=== PATIENT | male | born 1990 | race Caucasian/White ===

== ENCOUNTER 2024-06-21 22:36 | Observation (INO) ==
--- NOTE | 2024-06-21 23:44 | Emergency Department Note ---
Impression & Plan Abdominal pain, Hernia, umbilical, Nausea & vomiting ED Provider Note CHIEF COMPLAINT: Abdominal pain HISTORY OF PRESENTING ILLNESS: This 33-year-old male patient presents to the emergency department with his for evaluation of abdominal pain. The patient was just discharged from the ER after imaging that revealed a fat- containing umbilical hernia. The patient states that he is still in extreme pain and now having vomiting. The patient was given pain medication for home, but he did not feel comfortable taking it. The patient also had IV Toradol and 2 doses of morphine while in the ER. The patient states that he did not feel comfortable being discharged home and then the patient vomited after he was discharged home. The patient states that he was also seen in the [place] ER today and was discharged home. The patient is requesting admission for emergent surgery or for a repeat CT scan due to his worsening and changing symptoms. The patient's previous ER visit from earlier today was reviewed. The patient's CBC was without leukocytosis, anemia, or thrombocytopenia. BMP revealed a BUN of 24, but no other significant abnormalities. CT scan of the abdomen and pelvis with IV contrast showed a fat-containing umbilical hernia with associated inflammatory fat stranding suggesting ischemia with no herniated bowel. The case was discussed with the on-call general surgeon Dr. Schreiber who stated that because there was no bowel association that this does not require emergent intervention. It was also inquired whether the patient could have the procedure completed tomorrow if he was admitted overnight. However, currently the OR schedule is full and was unable to be performed tomorrow. After discussion with Dr. Schreiber again, Dr. Schreiber stated that he could see the patient in the office on Tuesday (06/25/24). As the patient did not meet criteria for admission at that time, the patient was discharged home with an Oxy IR home pack for treatment of his pain. The patient had not had any nausea or vomiting while he was in the ER previously. REVIEW OF SYSTEMS: See HPI for pertinent positives and pertinent negatives. ALLERGIES: NKDA MEDICATIONS: None PAST MEDICAL HISTORY: Denies pertinent past medical or pertinent past surgical history PHYSICAL EXAM: VITALS: Vitals are noted on the nurse's note and reviewed by myself. GENERAL: The patient appears in pain and nauseous. Non toxic, in no acute distress, non-diaphoretic. SKIN: See abdominal exam. Capillary refill <2 sec. EYES: PERRLA. EOMI. Conjunctivae without injection, sclerae without icterus. NOSE: Patent without discharge. MOUTH: Mucous membranes moist. Uvula midline. Airway patent. NECK: Supple without nuchal rigidity. HEART: Regular rate and rhythm without murmurs gallops or rubs. LUNGS: Clear to auscultation bilaterally without wheezes, rales or rhonchi. No retractions or accessory muscle use. ABDOMEN: Positive bowel sounds x 4. Normal tympanic percussion. Soft, the patient is tender to palpation mostly centrally over the area of the umbilical hernia. There are no color changes of the umbilical hernia. Initially it was unable to reduce the hernia due to the patient's amount of discomfort. No other obvious masses or hepatosplenomegaly. Denis sign negative. No CVA tenderness. No guarding, rigidity, or rebound tenderness. No focal RLQ or LLQ tenderness. MUSCULOSKELETAL: No gross musculoskeletal defects. NEURO: Patient was alert and oriented. No focal neurological deficits. DIFFERENTIAL DIAGNOSIS: Differential diagnosis includes hepatitis, pancreatitis, cholecystitis, cholelithiasis, appendicitis, kidney stone, pyelonephritis, UTI, gastritis, gastroenteritis, mesenteric adenitis, obstruction, constipation, hernia, abdominal abscess, perforation, diverticulitis, IBD, ischemic colitis, abdominal aortic aneurysm, testicular torsion, prostatitis, or others. ED COURSE AND MEDICAL DECISION MAKING: HISTORY FROM INDEPENDENT HISTORIAN: Additional history was obtained from the patient's MEDICATIONS GIVEN: A total of 1 L normal saline solution bolus. Tylenol 1000 mg IV, Zofran 4 mg IV, morphine 4 mg IV, Pepcid 20 mg IV, Phenergan 25 mg IM, and fentanyl 50 mcg IV. MONITOR: Continuous surveillance monitor: Order was placed for continuous surveillance monitor. Patient was placed on the surveillance monitor and continuous pulse ox. Patient was noted to be in normal sinus rhythm at an initial rate of 80 bpm per my interpretation. INTERPRETATION OF LABS: I interpreted the labs with full lab results as below in the lab section of this note. Laboratory results pertinent to the emergent complaint are discussed in the MDM section below. The patient was advised to follow up with their PCP and/or specialist(s) for further outpatient monitoring and management of any abnormal results. INTERPRETATION OF IMAGING: Imaging studies were interpreted by myself and read by radiology as per the imaging section of this note. The patient was advised to follow up with their PCP and/or specialist(s) for further outpatient management of any non-emergent abnormal findings. Chest x-ray negative for acute cardiopulmonary etiology. CT scan of the abdomen pelvis with both oral and IV contrast shows an umbilical hernia with fat stranding and herniated omental fat. Advised clinical correlation and close follow-up for possibility of incarcerated hernia. Diffuse hepatic steatosis. Uncomplicated descending colon diverticulosis. Fat-containing left inguinal hernia. CONSULTATIONS: On-call hospitalist PROCEDURES: The risks and benefits of the procedure were discussed with the patient. Verbal consent was obtained to perform the procedure. The patient was placed in the supine position. The patient was given fentanyl 50 mcg IV for pain control. The umbilical hernia site was inspected and palpated to confirm the location and extent of the hernia. Gentle consistent pressure was applied at the hernia sac with counterpressure at the fascial defect to facilitate reduction. Gradual reduction of the hernia contents into the abdominal cavity was achieved without resistance. There was herniation again, but this was able to be reduced as well. However, the hernia does not stay reduced. However, no signs of incarceration or strangulation on exam after the hernia was finally able to be reduced. There were no complications. MDM SUMMARY: I examined the patient. I reviewed the patient's previous ER record. The patient has had worsening abdominal pain as well as uncontrolled nausea and vomiting. The patient is concerned that his hernia is worse or that something else is going on. The patient is requesting repeat imaging and repeat workup because of his worsening symptoms. An IV lock was placed and labs were drawn. White blood cell count went from 6.93-11.05. Hemoglobin remained normal at 15.8. Platelet count normal. Glucose 109 and ALT 73, but CMP otherwise normal. Lipase normal. Magnesium normal. Urinalysis with 2+ ketones, but no evidence for blood or infection. Chest x-ray negative for acute cardiopulmonary etiology. CT scan of the abdomen and pelvis this time with both oral and IV contrast shows an umbilical hernia with fat stranding and herniated omental fat. Advised clinical correlation and close follow-up for possibility of incarcerated hernia. Diffuse hepatic steatosis. Uncomplicated descending colon diverticulosis. Fat-containing left inguinal hernia. The patient had been given 1 L normal saline solution bolus, IV Tylenol, IV Zofran, IV morphine, IV Pepcid, and IM Phenergan with continued pain, nausea, and vomiting. After the CT scan results were received, I discussed an additional attempt at reducing the hernia. The patient was given fentanyl 50 mcg IV prior to the hernia reduction. I was able to successfully reduce the hernia as above, but it did not stay reduced. However, it does not appear incarcerated or strangulated at this time as I can continue to reduce it each time. I do not feel that surgery needs to be consulted again as the CT scan does not show any new findings. However, the patient states that he is unable to be discharged home due to his continued nausea and vomiting as well as pain. Therefore, the patient will be admitted to medicine for further symptomatic management. The patient was advised that surgery during his inpatient stay would be unlikely unless new surgical concerns developed. I spoke with the on- call hospitalist who agreed to admit the patient for further evaluation and treatment. Please refer to their dictation for further details. The patient was admitted in stable condition. DIAGNOSIS: Abdominal pain Nausea and vomiting Umbilical hernia Past Med/Surg History Problem List (Updated 06/22/24 @ 07:30 by Blanche Sanchez PA-C) Nausea & vomiting (Acute) Abdominal pain (Acute) Hernia, umbilical (Acute) Social History Smoking Status: Never smoker Tobacco Type: Cigarettes Preferred Language: Kinyarw[place] Feels Safe at Home: Yes Allergies Allergies Allergy/AdvReac Type Severity Reaction Status Date / Time No Known Allergies Allergy Verified 06/21/24 19:41 Home Meds Previous Rx's Medication Instructions Recorded oxycodone 5 mg tablet 5 mg PO Q8H PRN pain #20 tabs 06/21/24 Results & Data (ED) Vital Signs Vital Signs - 24 hr 06/21/24 22:38 06/22/24 00:00 06/22/24 00:36 Temperature 37.0 C Temperature Source Oral Pulse Rate 78 Pulse Rate [Finger] 64 Respiratory Rate 18 18 Respiratory Effort / Characteristics Non-Labored Spontaneous Non-Labored Spontaneous Respiratory Depth Normal Normal Respiratory Pattern Regular Regular Blood Pressure 167/109 H Blood Pressure [Left Arm] 148/95 H Blood Pressure Mean 128 Blood Pressure Mean [Left Arm] 112 Pulse Oximetry 97 98 95 Oxygen Delivery Method Room Air Room Air Room Air Sepsis Recent Fever Within 48 Hours No Sepsis New/Unexplained Change in Mental Status N/A Sepsis Action Taken by Nursing No Action Required 06/22/24 02:00 06/22/24 04:00 06/22/24 06:00 Temperature Temperature Source Pulse Rate Pulse Rate [Finger] 63 65 56 L Respiratory Rate 18 17 17 Respiratory Effort / Characteristics Non-Labored Spontaneous Non-Labored Spontaneous Non-Labored Spontaneous Respiratory Depth Normal Normal Normal Respiratory Pattern Regular Regular Regular Blood Pressure Blood Pressure [Left Arm] 144/85 H 129/80 Blood Pressure Mean Blood Pressure Mean [Left Arm] 104 96 Pulse Oximetry 97 93 93 Oxygen Delivery Method Room Air Room Air Room Air Sepsis Recent Fever Within 48 Hours Sepsis New/Unexplained Change in Mental Status Sepsis Action Taken by Nursing Laboratory Data 06/22/24 00:17 06/22/24 00:17 Lab Results 06/22/24 06/22/24 Range/Units 00:17 03:52 WBC 11.05 H (4.8-10.8) K/ul RBC 5.25 (4.70-6.10) M/uL Hgb 15.8 (14.0-18.0) g/dl Hct 44.1 (42.0-52.0) % MCV 84.0 (80.0-100.0) fL MCH 30.1 (25.0-34.0) pg MCHC 35.8 (32.0-36.0) g/dL RDW Std Deviation 35.5 L (36.4-46.3) fL RDW Coeff of Domenic 11.8 (11.5-14.5) % Plt Count 280 (130-400) K/uL MPV 9.0 L (9.4-12.4) fL Immature Gran % (Auto) 0.4 % Neut % (Auto) 79.3 % Lymph % (Auto) 12.5 % [place] % (Auto) 6.6 % Eos % (Auto) 0.6 % Baso % (Auto) 0.6 % Neut # (Auto) 8.76 H (1.40-6.50) K/uL Lymph # (Auto) 1.38 (1.20-3.40) K/uL [place] # (Auto) 0.73 H (0.11-0.59) K/uL Eos # (Auto) 0.07 (0.00-0.50) K/uL Baso # (Auto) 0.07 (0.00-0.20) K/uL Immature Gran # (Auto) 0.04 (0.01-0.20) K/uL Sodium 137 (136-145) mmol/L Potassium 3.6 (3.5-5.1) mmol/L Chloride 105 (98-107) mmol/L Carbon Dioxide 25 (21-32) mmol/L Anion Gap 7 (3-11) BUN 18 (6-23) mg/dl Creatinine 0.91 (0.6-1.4) mg/dl Est Cr Clr Drug Dosing 135.6 ml/min eGFR 114.13 BUN/Creatinine Ratio 19.8 (10-20) Glucose 109 H (70-99(Fasting)) mg/dl Calcium 9.2 (8.6-10.3) mg/dl Magnesium 2.1 (1.7-2.4) mg/dl Total Bilirubin 0.4 (0.2-1.0) mg/dl AST 30 (13-39) U/L ALT 73 H (7-52) U/L Alkaline Phosphatase 53 (34-104) U/L Total Protein 7.5 (6.0-8.3) gm/dl Albumin 4.6 (3.4-5.0) gm/dl Globulin 2.9 (2.5-4.0) gm/dl Albumin/Globulin Ratio 1.6 (0.9-2) Lipase 52 (11-82) U/L Urine Color Yellow Urine Appearance Clear (Clear) Urine pH 6.0 (4.5-7.5) Ur Specific [place] > 1.045 H (1.000-1.030) Urine Protein Negative (Negative) Urine Glucose (UA) Negative (Negative) Urine Ketones 2+ H (Negative) Urine Blood Negative (Negative) Urine Nitrite Negative (Negative) Urine Bilirubin Negative (Negative) Urine Urobilinogen Negative (Negative) Ur Leukocyte Esterase Negative (Negative) Administered Medications Discontinued Medications Fentanyl Citrate (Fentanyl Citrate Pf 100 Mcg/2 Ml Vial) 50 mcg IV NOW STA Stop: 06/22/24 03:58 Last Admin: 06/22/24 04:10 Dose: 50 mcg Documented By: RICARDO Acetaminophen (Ofirmev) 1,000 mg in 100 mls @ 400 mls/hr IV NOW STA Stop: 06/22/24 00:10 Last Infusion: 06/22/24 00:39 Dose: Infused Documented By: Admin: 06/22/24 00:16 Dose: 400 mls/hr Documented By: RICARDO Sodium Chloride (Nss) 500 mls @ 999 mls/hr IV .Q31M ONE Stop: 06/22/24 00:26 Last Infusion: 06/22/24 00:48 Dose: Infused Documented By: Admin: 06/22/24 00:16 Dose: 999 mls/hr Documented By: RICARDO Famotidine (Pepcid 20mg Iv Push) 20 mg in 5 mls @ 2.5 mls/min IV NOW STA Stop: 06/22/24 01:44 Last Admin: 06/22/24 01:55 Dose: 2.5 mls/min Documented By: RICARDO Sodium Chloride (Nss) 500 mls @ 999 mls/hr IV .Q31M ONE Stop: 06/22/24 04:43 Last Infusion: 06/22/24 04:58 Dose: Infused Documented By: Admin: 06/22/24 04:26 Dose: 999 mls/hr Documented By: RICARDO Ioversol (Optiray 320 100ml) 100 ml IV ONCE ONE Stop: 06/22/24 02:30 Last Admin: 06/22/24 02:30 Dose: 93 ml Documented By: KHAI Morphine Sulfate (Morphine Sulfate 4 Mg/Ml 1 Ml Carp\Vial) 4 mg IV NOW STA Stop: 06/22/24 01:21 Last Admin: 06/22/24 01:38 Dose: 4 mg Documented By: RICARDO Ondansetron HCl (Ondansetron Inj 2 Mg/Ml 2 Ml Vial) 4 mg IV NOW STA Stop: 06/21/24 23:57 Last Admin: 06/22/24 00:16 Dose: 4 mg Documented By: RICARDO Promethazine HCl (Promethazine Hcl Inj 25 Mg/Ml 1 Ml Vial) 25 mg IM NOW STA Stop: 06/22/24 01:44 Last Admin: 06/22/24 01:54 Dose: 25 mg Documented By: RICARDO Imaging Data Radiologist's Impression: Abdomen/Pelvis CT 06/21/24 23:57 EXAM: CT abd pelvis oral and IV con CLINICAL HISTORY: Worsening abd pain, vomiting, h/o ischemic hernia TECHNIQUE: Multiple contiguous axial images were obtained from the level of diaphragm to the pubis symphysis. This study was acquired after the IV administration of iodinated contrast material, given the patient's indications for the examination. If IV contrast material had not been administered, the likelihood of detecting abnormalities relevant to the patient's condition would have been substantially decreased. Coronal and sagittal reformatted images were generated and reviewed to improve anatomic localization and optimize lesion detection. CT scan was performed according to ALARA (as low as reasonably achievable). COMPARISON: none FINDINGS: The visualized lung bases shows subpleural ground glassing in bilateral lower lobes. ABDOMEN/PELVIS: The liver is normal in size and shows diffuse hypoenhancement. No focal liver lesions are seen. There is no intra or extrahepatic biliary ductal dilatation. Hepatic vasculature is patent. The gallbladder is unremarkable. The spleen, pancreas, and adrenal glands are unremarkable. The kidneys are normal in size and attenuation. There is no hydronephrosis or perinephric fat stranding. No renal calculi or renal masses are identified. The ureters are normal in caliber and no ureteral calculi are seen. The bladder is normal in contour. No evidence of focal or diffuse bowel wall thickening or evidence of bowel obstruction is seen. Few small diverticuli of 2mm seen in descending colon. No inflammatory changes. The appendix is visualized in the right lower quadrant and appears within normal limits. No adenopathy or fluid collections are seen. The aorta is normal in caliber. No aggressive appearing osseous lesions are identified. Fat containing umbilical hernia is seen, the defect measuring [id number]. There is fat stranding seen in herniated omental fat. Fat containing left inguinal hernia. IMPRESSION: 1. Umbilical hernia with fat stranding in herniated omental fat. Advised clinical correlation and close follow up for possibility of incarcerated hernia. 2. Diffuse hepatic steatosis. 3. Uncomplicated descending colon diverticulosis. 4. Fat containing left inguinal hernia. Electronically signed by Jitendra Vega 06-22-2024 03:17 AM Chest X-Ray 06/21/24 23:57 EXAM: XR chest 1V portable CLINICAL HISTORY: Abdominal pain. TECHNIQUE: An X-ray image of the chest is obtained in AP projection. COMPARISON: No prior studies are available for comparison. FINDINGS: Pulmonary Parenchyma: Lungs are clear bilaterally. No evidence of consolidation, collapse, or focal opacities. No pulmonary nodules are identified. No evidence of pleural effusion or pleural thickening. Heart and Mediastinum: Heart size and shape are normal. No mediastinal widening or masses. No hilar or mediastinal lymphadenopathy. Bony Thorax: Bony thorax appears intact without fractures or deformities. Soft Tissues: Soft tissues overlying the chest wall are unremarkable. IMPRESSION: Normal chest X-ray. No acute cardiopulmonary abnormalities are identified. Electronically signed by Mati Henderson 06-22-2024 01:38 AM Discharge Plan Visit Data Chief Complaint: Pain (Generalized) Stated Complaint: PAIN ED Provider: Vernell Cid ED Midlevel Provider: Blanche Sanchez Discharge Problem: Abdominal pain, Hernia, umbilical, Nausea & vomiting Patient Disposition: Admitted As Inpatient Condition: Good Forms Stand Alone Forms: [place] Prescriptions Prescriptions: No Action oxycodone 5 mg tablet 5 mg PO Q8H PRN (Reason: pain) Qty: 20 0RF Referrals Referrals: PCP,NO [Physician] - Discharge Problem: Abdominal pain Qualifiers: Abdominal location: generalized Qualified Code(s): R10.84 - Generalized abdominal pain Hernia, umbilical Qualifiers: Obstruction and gangrene presence: without obstruction or gangrene Qualified Code(s): K42.9 - Umbilical hernia without obstruction or gangrene Nausea & vomiting Qualifiers: Vomiting type: unspecified Qualified Code(s): R11.2 - Nausea with vomiting, unspecified
[2024-06-22] MEDS: ONDANSETRON INJ 2 MG/ML 2 ML VIAL IV STA (00:16)
[2024-06-22] MEDS: SODIUM CHLORIDE 0.9% 500 ML IV ONE ×2 (00:16→04:26)
[2024-06-22] MEDS: ACETAMINOPHEN 1,000 MG/100 ML VIAL IV STA (00:16)
[2024-06-22 00:36] LABS: Basophils # (auto) 0.07 K/uL (0.00-0.20); Basophils % (auto) 0.6 %; Eosinophils # (auto) 0.07 K/uL (0.00-0.50); Eosinophils % (auto) 0.6 %; Hematocrit (blood only) 44.1 % (42.0-52.0); Hemoglobin 15.8 g/dl (14.0-18.0); Immature Granulocytes # (auto) 0.04 K/uL (0.01-0.20); Immature Granulocytes % (auto) 0.4 %; Lymphocytes # (auto) 1.38 K/uL (1.20-3.40); Lymphocytes % (auto) 12.5 %; Mean Corpuscular Hemoglobin 30.1 pg (25.0-34.0); Mean Corpuscular Hgb Conc 35.8 g/dL (32.0-36.0); Monocytes # (auto) 0.73 K/uL (0.11-0.59); Monocytes % (auto) 6.6 %; Neutrophils # (auto) 8.76 K/uL (1.40-6.50); Neutrophils % (auto) 79.3 %; Platelet Count 280 K/uL (130-400); RDW Coefficient of Variation 11.8 % (11.5-14.5); RDW Standard Deviation 35.5 fL (36.4-46.3); Red Blood Count 5.25 M/uL (4.70-6.10); White Blood Count 11.05 K/ul (4.8-10.8)
[2024-06-22 00:53] LABS: Albumin Globulin Ratio 1.6 (0.9-2); Albumin Level 4.6 gm/dl (3.4-5.0); BUN Creatinine Ratio 19.8 (10-20); Bilirubin,Total 0.4 mg/dl (0.2-1.0); Calcium 9.2 mg/dl (8.6-10.3); Creatinine Clr Calc Pharmacy 135.6 ml/min; Globulin 2.9 gm/dl (2.5-4.0); Magnesium 2.1 mg/dl (1.7-2.4); Potassium 3.6 mmol/L (3.5-5.1); Total Protein 7.5 gm/dl (6.0-8.3)
[2024-06-22] MEDS: MoRPHine SULFATE 4 MG/ML 1 ML CARP\\VIAL IV STA (01:38)
--- NOTE | 2024-06-22 01:40 | XRay Report ---
EXAM: XR chest 1V portable CLINICAL HISTORY: Abdominal pain. TECHNIQUE: An X-ray image of the chest is obtained in AP projection. COMPARISON: No prior studies are available for comparison. FINDINGS: Pulmonary Parenchyma: Lungs are clear bilaterally. No evidence of consolidation, collapse, or focal opacities. No pulmonary nodules are identified. No evidence of pleural effusion or pleural thickening. Heart and Mediastinum: Heart size and shape are normal. No mediastinal widening or masses. No hilar or mediastinal lymphadenopathy. Bony Thorax: Bony thorax appears intact without fractures or deformities. Soft Tissues: Soft tissues overlying the chest wall are unremarkable. IMPRESSION: Normal chest X-ray. No acute cardiopulmonary abnormalities are identified. Electronically signed by Mati Henderson 06-22-2024 01:38 AM
[2024-06-22] MEDS: PROMETHAZINE HCL INJ 25 MG/ML 1 ML VIAL IM STA (01:54)
[2024-06-22] MEDS: FAMOTIDINE 20MG IV PUSH 20 MG/5 ML SYR IV STA (01:55)
[2024-06-22] MEDS: OPTIRAY 320 100ml IV ONE (02:30)
--- NOTE | 2024-06-22 03:18 | CT Scan Report ---
EXAM: CT abd pelvis oral and IV con CLINICAL HISTORY: Worsening abd pain, vomiting, h/o ischemic hernia TECHNIQUE: Multiple contiguous axial images were obtained from the level of diaphragm to the pubis symphysis. This study was acquired after the IV administration of iodinated contrast material, given the patient's indications for the examination. If IV contrast material had not been administered, the likelihood of detecting abnormalities relevant to the patient's condition would have been substantially decreased. Coronal and sagittal reformatted images were generated and reviewed to improve anatomic localization and optimize lesion detection. CT scan was performed according to ALARA (as low as reasonably achievable). COMPARISON: none FINDINGS: The visualized lung bases shows subpleural ground glassing in bilateral lower lobes. ABDOMEN/PELVIS: The liver is normal in size and shows diffuse hypoenhancement. No focal liver lesions are seen. There is no intra or extrahepatic biliary ductal dilatation. Hepatic vasculature is patent. The gallbladder is unremarkable. The spleen, pancreas, and adrenal glands are unremarkable. The kidneys are normal in size and attenuation. There is no hydronephrosis or perinephric fat stranding. No renal calculi or renal masses are identified. The ureters are normal in caliber and no ureteral calculi are seen. The bladder is normal in contour. No evidence of focal or diffuse bowel wall thickening or evidence of bowel obstruction is seen. Few small diverticuli of 2mm seen in descending colon. No inflammatory changes. The appendix is visualized in the right lower quadrant and appears within normal limits. No adenopathy or fluid collections are seen. The aorta is normal in caliber. No aggressive appearing osseous lesions are identified. Fat containing umbilical hernia is seen, the defect measuring [id number]. There is fat stranding seen in herniated omental fat. Fat containing left inguinal hernia. IMPRESSION: 1. Umbilical hernia with fat stranding in herniated omental fat. Advised clinical correlation and close follow up for possibility of incarcerated hernia. 2. Diffuse hepatic steatosis. 3. Uncomplicated descending colon diverticulosis. 4. Fat containing left inguinal hernia. Electronically signed by Jitendra Vega 06-22-2024 03:17 AM
[2024-06-22] MEDS: fentaNYL citrate PF 100 MCG/2 ML VIAL IV STA (04:10)
[2024-06-22 04:11] LABS: Appearance Urine Clear (Clear); Bilirubin Urine Negative (Negative); Blood Urine Negative (Negative); Color Urine Yellow; Glucose Urine UA Negative (Negative); Ketones Urine 2+ (Negative); Leukocyte Esterase Urine Negative (Negative); Nitrite Urine Negative (Negative); Protein Urine Negative (Negative); Specific Gravity Urine > 1.045 (1.000-1.030); Urobilinogen Urine Negative (Negative)
--- NOTE | 2024-06-22 04:37 | History & Physical Report ---
Date of Service June 22, 2024 Assessment & Plan (1) Abdominal pain: Plan: Abdominal pain Possible incarcerated umbilical hernia Hepatic steatosis on imaging likely NAFLD Morbid obesity OBS Admit to MedSurg Analgesia General Surgery consult Re: Abdominal pain, possible incarcerated umbilical hernia N.p.o. until seen by general surgery in anticipation of procedure Outpatient GI follow-up for likely NAFLD DVT prophylaxis. SCDs re: possible procedure Full code Text document was generated using [employer] voice recognition software. It may contain grammatical or spelling errors. Kindly contact undersigned for clarification of any documentation item in question. History of Present Illness Chief Complaint: Abdominal pain Primary Care Provider: GERRI MCMANUS (Patient has not met her.) History obtained from patient, family, and records. No significant medical history. Patient moved to [place], [place] from [place] last November,. Has not been to see assigned PCP. Patient has had a hernia close to his bellybutton for about a year now. Worsening pain noted since last week. Patient unable to push bulge in. No fever, no chills. No chest pain, no SOB. Hard to move bowels because of pain from bearing down. Denies black/bloody stools. [facility]. He was told to see General Surgery outpatient. Unanswered calls to [place] surgeon office as per patient/family. Patient consulted ER yesterday afternoon due to worsening symptoms. CT abdomen pelvis showed Prominent fat-containing umbilical hernia, associated with inflammatory fat stranding, suggesting ischemia. No herniated bowel. Outpatient appointment recommended by general surgeon as per discussion with ED provider. Patient uncomfortable upon discharge at the ER. Had pick him up from the hospital. Patient had episode of emesis in the vehicle. Patient returned to ER for further evaluation. 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 Allergies Allergy/AdvReac Type Severity Reaction Status Date / Time No Known Allergies Allergy Verified 06/21/24 19:41 Home Medications Medication Instructions Recorded Confirmed Type oxycodone 5 mg tablet 5 mg PO Q8H PRN pain #20 tabs 06/21/24 06/22/24 Rx Past Med/Surg History Problem List (Updated 06/21/24 @ 20:54 by Eliseo Sanchez MD) Abdominal pain (Acute) Hernia, umbilical (Acute) Social History Smoking Status: Never smoker Tobacco Type: Cigarettes Preferred Language: Serbian Feels Safe at Home: Yes Review of Systems Review of Systems: As per HPI, all other systems reviewed and negative Physical Exam Physical Exam: GENERAL: Comfortable, morbidly obese, slightly anxious, no respiratory distress SKIN: Normal color, warm HEENT: Pease palpebral conjunctivae, no ptosis, dry buccal mucosa NECK : Supple, no tenderness CHEST : CTA, no tenderness HEART : RRR, no obvious murmurs ABDOMEN: Some distention, tender bulge over periumbilical hernia EXTREMITIES : Minimal LE swelling without tenderness, palpable pulses, no other conspicuous deformities noted NEUROLOGIC : Coherent, no facial asymmetry, no other gross focality Results & Data Results & Data Vital Signs (Past 12 Hours) Vital Signs Temp Pulse Pulse Resp BP BP Pulse Ox 06/22/24 04:00 65 17 129/80 93 06/22/24 02:00 63 18 144/85 H 97 06/22/24 00:36 64 18 148/95 H 95 06/22/24 00:00 98 06/21/24 22:38 37.0 C 78 18 167/109 H 97 O2 Del Method 06/22/24 04:00 Room Air 06/22/24 02:00 Room Air 06/22/24 00:36 Room Air 06/22/24 00:00 Room Air 06/21/24 22:38 Room Air Laboratory Results Laboratory Results WBC 11.05 K/ul (4.8-10.8) H 06/22/24 00:17 RBC 5.25 M/uL (4.70-6.10) 06/22/24 00:17 Hgb 15.8 g/dl (14.0-18.0) 06/22/24 00:17 Hct 44.1 % (42.0-52.0) 06/22/24 00:17 MCV 84.0 fL (80.0-100.0) 06/22/24 00:17 MCH 30.1 pg (25.0-34.0) 06/22/24 00:17 MCHC 35.8 g/dL (32.0-36.0) 06/22/24 00:17 RDW Std Deviation 35.5 fL (36.4-46.3) L 06/22/24 00:17 RDW Coeff of Domenic 11.8 % (11.5-14.5) 06/22/24 00:17 Plt Count 280 K/uL (130-400) 06/22/24 00:17 MPV 9.0 fL (9.4-12.4) L 06/22/24 00:17 Immature Gran % (Auto) 0.4 % 06/22/24 00:17 Neut % (Auto) 79.3 % 06/22/24 00:17 Lymph % (Auto) 12.5 % 06/22/24 00:17 [place] % (Auto) 6.6 % 06/22/24 00:17 Eos % (Auto) 0.6 % 06/22/24 00:17 Baso % (Auto) 0.6 % 06/22/24 00:17 Neut # (Auto) 8.76 K/uL (1.40-6.50) H 06/22/24 00:17 Lymph # (Auto) 1.38 K/uL (1.20-3.40) 06/22/24 00:17 [place] # (Auto) 0.73 K/uL (0.11-0.59) H 06/22/24 00:17 Eos # (Auto) 0.07 K/uL (0.00-0.50) 06/22/24 00:17 Baso # (Auto) 0.07 K/uL (0.00-0.20) 06/22/24 00:17 Immature Gran # (Auto) 0.04 K/uL (0.01-0.20) 06/22/24 00:17 Sodium 137 mmol/L (136-145) 06/22/24 00:17 Potassium 3.6 mmol/L (3.5-5.1) 06/22/24 00:17 Chloride 105 mmol/L (98-107) 06/22/24 00:17 Carbon Dioxide 25 mmol/L (21-32) 06/22/24 00:17 Anion Gap 7 (3-11) 06/22/24 00:17 BUN 18 mg/dl (6-23) 06/22/24 00:17 Creatinine 0.91 mg/dl (0.6-1.4) 06/22/24 00:17 Est Cr Clr Drug Dosing 135.6 ml/min 06/22/24 00:17 eGFR 114.13 06/22/24 00:17 BUN/Creatinine Ratio 19.8 (10-20) 06/22/24 00:17 Glucose 109 mg/dl (70-99(Fasting)) H 06/22/24 00:17 Calcium 9.2 mg/dl (8.6-10.3) 06/22/24 00:17 Magnesium 2.1 mg/dl (1.7-2.4) 06/22/24 00:17 Total Bilirubin 0.4 mg/dl (0.2-1.0) 06/22/24 00:17 AST 30 U/L (13-39) 06/22/24 00:17 ALT 73 U/L (7-52) H 06/22/24 00:17 Alkaline Phosphatase 53 U/L (34-104) 06/22/24 00:17 Total Protein 7.5 gm/dl (6.0-8.3) 06/22/24 00:17 Albumin 4.6 gm/dl (3.4-5.0) 06/22/24 00:17 Globulin 2.9 gm/dl (2.5-4.0) 06/22/24 00:17 Albumin/Globulin Ratio 1.6 (0.9-2) 06/22/24 00:17 Lipase 52 U/L (11-82) 06/22/24 00:17 Urine Color Yellow 06/22/24 03:52 Urine Appearance Clear (Clear) 06/22/24 03:52 Urine pH 6.0 (4.5-7.5) 06/22/24 03:52 Ur Specific [place] > 1.045 (1.000-1.030) H 06/22/24 03:52 Urine Protein Negative (Negative) 06/22/24 03:52 Urine Glucose (UA) Negative (Negative) 06/22/24 03:52 Urine Ketones 2+ (Negative) H 06/22/24 03:52 Urine Blood Negative (Negative) 06/22/24 03:52 Urine Nitrite Negative (Negative) 06/22/24 03:52 Urine Bilirubin Negative (Negative) 06/22/24 03:52 Urine Urobilinogen Negative (Negative) 06/22/24 03:52 Ur Leukocyte Esterase Negative (Negative) 06/22/24 03:52 Impressions Abdomen/Pelvis CT 06/21/24 23:57 EXAM: CT abd pelvis oral and IV con CLINICAL HISTORY: Worsening abd pain, vomiting, h/o ischemic hernia TECHNIQUE: Multiple contiguous axial images were obtained from the level of diaphragm to the pubis symphysis. This study was acquired after the IV administration of iodinated contrast material, given the patient's indications for the examination. If IV contrast material had not been administered, the likelihood of detecting abnormalities relevant to the patient's condition would have been substantially decreased. Coronal and sagittal reformatted images were generated and reviewed to improve anatomic localization and optimize lesion detection. CT scan was performed according to ALARA (as low as reasonably achievable). COMPARISON: none FINDINGS: The visualized lung bases shows subpleural ground glassing in bilateral lower lobes. ABDOMEN/PELVIS: The liver is normal in size and shows diffuse hypoenhancement. No focal liver lesions are seen. There is no intra or extrahepatic biliary ductal dilatation. Hepatic vasculature is patent. The gallbladder is unremarkable. The spleen, pancreas, and adrenal glands are unremarkable. The kidneys are normal in size and attenuation. There is no hydronephrosis or perinephric fat stranding. No renal calculi or renal masses are identified. The ureters are normal in caliber and no ureteral calculi are seen. The bladder is normal in contour. No evidence of focal or diffuse bowel wall thickening or evidence of bowel obstruction is seen. Few small diverticuli of 2mm seen in descending colon. No inflammatory changes. The appendix is visualized in the right lower quadrant and appears within normal limits. No adenopathy or fluid collections are seen. The aorta is normal in caliber. No aggressive appearing osseous lesions are identified. Fat containing umbilical hernia is seen, the defect measuring [id number]. There is fat stranding seen in herniated omental fat. Fat containing left inguinal hernia. IMPRESSION: 1. Umbilical hernia with fat stranding in herniated omental fat. Advised clinical correlation and close follow up for possibility of incarcerated hernia. 2. Diffuse hepatic steatosis. 3. Uncomplicated descending colon diverticulosis. 4. Fat containing left inguinal hernia. Electronically signed by Jitendra Vega 06-22-2024 03:17 AM Chest X-Ray 06/21/24 23:57 EXAM: XR chest 1V portable CLINICAL HISTORY: Abdominal pain. TECHNIQUE: An X-ray image of the chest is obtained in AP projection. COMPARISON: No prior studies are available for comparison. FINDINGS: Pulmonary Parenchyma: Lungs are clear bilaterally. No evidence of consolidation, collapse, or focal opacities. No pulmonary nodules are identified. No evidence of pleural effusion or pleural thickening. Heart and Mediastinum: Heart size and shape are normal. No mediastinal widening or masses. No hilar or mediastinal lymphadenopathy. Bony Thorax: Bony thorax appears intact without fractures or deformities. Soft Tissues: Soft tissues overlying the chest wall are unremarkable. IMPRESSION: Normal chest X-ray. No acute cardiopulmonary abnormalities are identified. Electronically signed by Mati Henderson 06-22-2024 01:38 AM (1) Abdominal pain Abdominal location: periumbilical Qualified Code(s): R10.33 - Periumbilical pain
[2024-06-22] MEDS ORDERED: oxyCODONE HCL IR 5 MG TAB (IMMEDIATE RELEASE) PO PRN (04:38)
[2024-06-22] MEDS ORDERED: LORazepam 0.5 MG TAB PO PRN (04:38)
[2024-06-22] MEDS ORDERED: PROMETHAZINE 12.5 MG/50.5 ML BAG IV PRN (04:38)
[2024-06-22] MEDS ORDERED: ACETAMINOPHEN 500 MG TAB PO PRN (04:38)
--- NOTE | 2024-06-22 07:48 | Hospitalist Progress Note ---
Date of Service June 22, 2024 Assessment & Plan (1) Abdominal pain: Plan: 33 year old male with no known medical history presents with abdominal pain, umbilical hernia and emesis. CTAP suggestive of incarcerated hernia; mild leukocytosis. Abdominal pain Possible incarcerated umbilical hernia: acute Seen at [facility] ED last week and was unable to secure a follow up appointment. His abdominal pain started about 10 days ago. Umbilical hernia was reduced upon his arrival to the ED and popped back out. Has used abd binder without relief. Reports emesis x2 over the past 48 hours without hematemesis. CTAP suggestive of incarcerated hernia and uncomplicated descending colon diverticulosis. Fat-containing left inguinal hernia. no herniation identified. General Surgery consult placed; RCRI score zero. No leukocytosis mild leukocytosis; 11.05; some chills Morphine and ketorolac for pain control. Does not want to take oxycodone. ECG ordered and will keep NPO; IVF ordered @ 100mL/hour x1 bag; reassess Gen sx planning to take to OR for incarcerated umbilical repair as an add on today 06/22. Hepatic steatosis: identified on CTAP; likely NAFLD ALT 73 recommend outpatient GI follow-up Trend CMP in a.m. Morbid obesity: BMI 42 May have underlying heart disease; no established PCP here; would benefit from lipid panel, HA1c, TSH; will add on here. Disposition: PCP: Recently moved from the [facility] 12/2023; will require outpatient PCP to be established prior to discharge. DVT prophylaxis. SCDs re: possible procedure CODE STATUS:Full code I spent a total of 62 minutes coordinating, documenting, and providing care for this patient excluding time spent inthe performance of separately billed services or time spent by another provider/QHP. Supervising Physician Co-Signing Physician Notes Patient is seen and examined at bedside. States having abdominal pain p eriumbilical associate with nausea, vomiting today. Denies any chest pain, dyspnea, dizziness. Discussed with patient's family at bedside. On exam patient is morbidly obese, no apparent distress, normocephalic atraumatic, EOMI, normal breath sounds, clear to auscultation, S1-S2, no murmur, no peripheral edema, abdomen soft, protuberant, generalized tenderness, voluntary guarding, umbilical hernia present, no rigidity, normal bowel sounds, alert, awake, oriented, grossly no focal deficits. Patient is currently being managed for suspected incarcerated umbilical hernia. IV fluids, n.p.o., pain control for now. Appreciate surgery input. Plan for open umbilical hernia repair today. I personally interviewed and examined the patient at bedside. I have reviewed the advanced practitioner's documentation on the date of service referred in note and agree with plan. Patient's care is coordinated with Abimbola NOBLES . Please refer to the documentation above for details of patient's presentation and for discussion of other issues. I spent a total [id number] coordinating, documenting, and providing care for this patient excluding time spent in the performance of separately billed services or time spent by another provider/QHP. Subjective Pt lying in his hospital bed in apparent distress, with furrowed brow. His eyes were closed and he was resting - easily awakened by verbal stimuli. States that his abdominal symptoms have been going on for almost two weeks. He was seen at [facility] ED last week and was unable to secure a follow up appointment. His abdominal pain started about 10 days ago. His umbilical hernia was reduced upon his arrival to the ED. Reports two episodes of emesis over the past 48 hours. Reports chills without fever intermittently. Review of Systems Review of Systems: Neuro: (-) Falls, trauma, slurred speech (+) chills HEENT: (-) MAG[place], dizziness, dysphagia, visual or auditory changes CV: (-) CP, palpitations, swelling Resp: (-) SOB GI: (-) appetite changes, N/V/D, bowel changes (+) abdominal pain and tenderness around umbilicus : (-) urinary changes Skin: (-) rashes Psych: (-) anxiety, depression Physical Exam Physical Exam: Neuro: AAOx4, PERRLA, no aphagia, memory changes, CNII-XII grossly intact HEENT: head normocephalic, moist mucus membranes CV: S1/S2, (-) M/G/R, (-) edema, cap refill < 3 seconds Resp: Lungs CTA in all owen. On RA GI: Abdomen large, Soft and tender in all four quadrants, Ax4 bowel sounds, (-) CVA tenderness Musculoskeletal: 5/5 B/L UE strength, 5/5 B/L LE strength. No gait disturbance Skin: (-) rashes , (-) erythema. Psych: euthymic mood Results & Data Results & Data Vital Signs (Past 12 Hours) Vital Signs Temp Pulse Pulse Resp BP BP Pulse Ox 06/22/24 06:00 56 L 17 93 06/22/24 04:00 65 17 129/80 93 06/22/24 02:00 63 18 144/85 H 97 06/22/24 00:36 64 18 148/95 H 95 06/22/24 00:00 98 06/21/24 22:38 37.0 C 78 18 167/109 H 97 O2 Del Method 06/22/24 06:00 Room Air 06/22/24 04:00 Room Air 06/22/24 02:00 Room Air 06/22/24 00:36 Room Air 06/22/24 00:00 Room Air 06/21/24 22:38 Room Air Laboratory Results Short CBC 06/22/24 Range/Units 00:17 WBC 11.05 H (4.8-10.8) K/ul Hgb 15.8 (14.0-18.0) g/dl Hct 44.1 (42.0-52.0) % Plt Count 280 (130-400) K/uL BMP 06/22/24 00:17 Sodium 137 Potassium 3.6 Chloride 105 Carbon Dioxide 25 BUN 18 Creatinine 0.91 Glucose 109 H Calcium 9.2 Liver Function 06/22/24 Range/Units 00:17 Total Bilirubin 0.4 (0.2-1.0) mg/dl AST 30 (13-39) U/L ALT 73 H (7-52) U/L Alkaline Phosphatase 53 (34-104) U/L Albumin 4.6 (3.4-5.0) gm/dl Urine 06/22/24 Range/Units 03:52 Urine Color Yellow Urine Appearance Clear (Clear) Urine pH 6.0 (4.5-7.5) Ur Specific [place] > 1.045 H (1.000-1.030) Urine Protein Negative (Negative) Urine Glucose (UA) Negative (Negative) Diagnostic Findings Abdomen/Pelvis CT 06/21/24 23:57 EXAM: CT abd pelvis oral and IV con CLINICAL HISTORY: Worsening abd pain, vomiting, h/o ischemic hernia TECHNIQUE: Multiple contiguous axial images were obtained from the level of diaphragm to the pubis symphysis. This study was acquired after the IV administration of iodinated contrast material, given the patient's indications for the examination. If IV contrast material had not been administered, the likelihood of detecting abnormalities relevant to the patient's condition would have been substantially decreased. Coronal and sagittal reformatted images were generated and reviewed to improve anatomic localization and optimize lesion detection. CT scan was performed according to ALARA (as low as reasonably achievable). COMPARISON: none FINDINGS: The visualized lung bases shows subpleural ground glassing in bilateral lower lobes. ABDOMEN/PELVIS: The liver is normal in size and shows diffuse hypoenhancement. No focal liver lesions are seen. There is no intra or extrahepatic biliary ductal dilatation. Hepatic vasculature is patent. The gallbladder is unremarkable. The spleen, pancreas, and adrenal glands are unremarkable. The kidneys are normal in size and attenuation. There is no hydronephrosis or perinephric fat stranding. No renal calculi or renal masses are identified. The ureters are normal in caliber and no ureteral calculi are seen. The bladder is normal in contour. No evidence of focal or diffuse bowel wall thickening or evidence of bowel obstruction is seen. Few small diverticuli of 2mm seen in descending colon. No inflammatory changes. The appendix is visualized in the right lower quadrant and appears within normal limits. No adenopathy or fluid collections are seen. The aorta is normal in caliber. No aggressive appearing osseous lesions are identified. Fat containing umbilical hernia is seen, the defect measuring [id number]. There is fat stranding seen in herniated omental fat. Fat containing left inguinal hernia. IMPRESSION: 1. Umbilical hernia with fat stranding in herniated omental fat. Advised clinical correlation and close follow up for possibility of incarcerated hernia. 2. Diffuse hepatic steatosis. 3. Uncomplicated descending colon diverticulosis. 4. Fat containing left inguinal hernia. Electronically signed by Jitendra Vega 06-22-2024 03:17 AM Chest X-Ray 06/21/24 23:57 EXAM: XR chest 1V portable CLINICAL HISTORY: Abdominal pain. TECHNIQUE: An X-ray image of the chest is obtained in AP projection. COMPARISON: No prior studies are available for comparison. FINDINGS: Pulmonary Parenchyma: Lungs are clear bilaterally. No evidence of consolidation, collapse, or focal opacities. No pulmonary nodules are identified. No evidence of pleural effusion or pleural thickening. Heart and Mediastinum: Heart size and shape are normal. No mediastinal widening or masses. No hilar or mediastinal lymphadenopathy. Bony Thorax: Bony thorax appears intact without fractures or deformities. Soft Tissues: Soft tissues overlying the chest wall are unremarkable. IMPRESSION: Normal chest X-ray. No acute cardiopulmonary abnormalities are identified. Electronically signed by Mati Henderson 06-22-2024 01:38 AM (1) Abdominal pain Abdominal location: generalized Qualified Code(s): R10.84 - Generalized abdominal pain
[2024-06-22] MEDS: KETOROLAC TROMETHAMINE 15 MG/ML VIAL IV PRN (08:54)
[2024-06-22] MEDS ORDERED: ENOXAPARIN INJ 40 MG/0.4 ML SYR SQ SCH (09:00)
[2024-06-22] MEDS: MoRPHine SULFATE 2 MG/ML CARP IV PRN (10:33)
[2024-06-22] MEDS: SODIUM CHLORIDE 0.9% 1,000 ML IV ONE (10:34)
--- NOTE | 2024-06-22 11:04 | Surgery Consultation ---
Date of Consultation June 22, 2024 Assessment & Plan (1) Hernia, umbilical: This is a 33yM with no significant PMH who presented to the [facility] ED on 06/21/24 with complaints of abdominal pain secondary to an umbilical hernia. Present at least over the last year but worsening symptoms and inability to self reduce it has worsened over the last week. He was unable to get into a surgeon as an out patient at [facility] and now has been in our ER twice over the last 24 hrs with worsening symptoms. He has had two CT a/p's that showed an umbilical hernia with fat stranding in herniated omental fat. Advised clinical correlation and close follow up for possibility of incarcerated hernia. It was apparently able to be reduced by the ER provider, but patient reports it then popped back out immediately causing him significant discomfort. Since 2nd ER evaluation he has since been admitted by the medicine service for pain/symptom control with the possibility of surgical intervention this admission. Today labs show wbc 11, hbg 15, cr 0.9. Vital signs are stable. On exam patient is resting in bed. Visually he has what appears to be a protruding umbilical hernia. On exam this area is tender to palpation. The patient was unable to tolerate me palpating it to attempt bedside reduction without writhing in bed despite recent pain medication. Options discussed with patient as far as consideration of elective surgical intervention in short order as there is no bowel in the hernia vs. surgery this admission. Given patient's pain and inability to keep hernia reduced causing him distress we will proceed with surgery which is what the patient is opting for. We will perform this in an open fashion unless availability to perform it robotically opens up. Dr. Gordillo to obtain consent. Supervising Physician Co-Signing Physician Notes Patient seen and examined, labs and imaging reviewed, agree with above. 33-year-old male with known umbilical hernia that had significant increase in pain over the past several days. Evaluated in the emergency department yesterday and a CT scan showed incarcerated fat. This was reduced but immediately returned and his pain worsened. He returned to the emergency department and overnight CT scan showed incarcerated fat. He was admitted overnight. No prior abdominal surgeries, otherwise healthy, no blood thinners. On exam he is afebrile with stable vitals. He is obese. His abdomen is soft, tender to palpation at the site of the umbilical hernia. He has an incarcerated fat-containing umbilical hernia with no erythema or evidence of obstruction or strangulation. Labs unremarkable. CT scan personally viewed and interpreted and agree with the assessment of incarcerated fat-containing umbilical hernia, approximately 1.5 to 2 cm defect. Plan for open umbilical hernia repair Risk discussed to include but not limited to bleeding, infection, recurrence, damage to surrounding structures, need for future more extensive surgery, and the risk of anesthesia He will likely be okay for discharge this afternoon or evening Follow-up in 2 weeks in general surgery clinic Wound care instructions and activity restrictions reviewed Return precautions given, call with questions or concerns History of Present Illness Attending Physician: Stuart Mortensen MD History of Present Illness This is a 33yM with no significant PMH who presented to the [facility] ED on 06/21/24 with complaints of abdominal pain. Patient reports history of being aware of having an umbilical hernia over the last year. It had not bothered him much and was always able to reduce it and have it remain reduced for a prolonged period of time without issues. Over the last week the patient reports worsening pain around his umbilical site and when it pops out he is unable to reduce it himself. This has been causing him significant pain. Last week he tried to call [facility] general surgery to get an appointment for evaluation, but this was never able to be established. As patient's symptoms/pain worsened he ended up coming in to [facility] ER yesterday for evaluation where a CT scan showed prominent fat-containing umbilical hernia, associated with inflammatory fat stranding, suggesting ischemia. No herniated bowel. The patient was given pain medication for symptoms. As the hernia contained fat and no bowel it was recommended he can be seen by [facility] as an outpt to schedule the case on an elective basis. Unfortunately upon discharge the patient left the ER and started having nausea/vomiting. Because of this and ongoing pain he returned to the ER for evaluation. A repeat CT a/p showed an umbilical hernia with fat stranding in herniated omental fat. Advised clinical correlation and close follow up for possibility of incarcerated hernia. It was apparently able to be reduced by the ER provider, but patient reports it then popped back out immediately. He has tried an abdominal binder as well as icing, and reclining the head of the bed down. He reports ongoing pain and nausea with this. Since 2nd ER evaluation he has since been admitted by the medicine service for pain/symptom control with the possibility of surgical intervention this admission. Patient denies any past surgical history. He is passing gas, last BM 2 days ago. Last ate a meal for lunch yesterday, no food since then just water. Cannot recall his last emesis, but has 5-6 times since yesterday. Allergies Allergy/AdvReac Type Severity Reaction Status Date / Time No Known Allergies Allergy Verified 06/21/24 19:41 Home Medications Medication Instructions Recorded Confirmed Type oxycodone 5 mg tablet 5 mg PO Q8H PRN pain #20 tabs 06/21/24 06/22/24 Rx Patient History Social History Smoking Status: Never smoker Tobacco Type: Cigarettes Preferred Language: Lithuanian Feels Safe at Home: Yes Review of Systems Constitutional: no fever and no chills Respiratory: no dyspnea Cardiovascular: no chest pain Gastrointestinal: + abdominal pain, + nausea and + vomitin g Physical Exam Physical Exam: awake/alert, anxious regarding pain Respiratory: normal respiratory effort Gastrointestinal (Abdomen): Percussion/Palpation: + abdomen tender (umbilical ), abdomen soft and + hernia (+ umbilical hernia, likely reducible but pt not able to tolerate 2/2 pain) Results & Data Vital Signs (Past 12 Hours) Vital Signs Pulse Resp BP Pulse Ox O2 Del Method 06/22/24 08:53 68 16 139/100 95 Room Air 06/22/24 06:00 56 L 17 93 Room Air 06/22/24 04:00 65 17 129/80 93 Room Air 06/22/24 02:00 63 18 144/85 H 97 Room Air 06/22/24 00:36 64 18 148/95 H 95 Room Air 06/22/24 00:00 98 Room Air Diagnostic Findings EXAM: CT abd pelvis oral and IV con CLINICAL HISTORY: Worsening abd pain, vomiting, h/o ischemic hernia TECHNIQUE: Multiple contiguous axial images were obtained from the level of diaphragm to the pubis symphysis. This study was acquired after the IV administration of iodinated contrast material, given the patient's indications for the examination. If IV contrast material had not been administered, the likelihood of detecting abnormalities relevant to the patient's condition would have been substantially decreased. Coronal and sagittal reformatted images were generated and reviewed to improve anatomic localization and optimize lesion detection. CT scan was performed according to ALARA (as low as reasonably achievable). COMPARISON: none FINDINGS: The visualized lung bases shows subpleural ground glassing in bilateral lower lobes. ABDOMEN/PELVIS: The liver is normal in size and shows diffuse hypoenhancement. No focal liver lesions are seen. There is no intra or extrahepatic biliary ductal dilatation. Hepatic vasculature is patent. The gallbladder is unremarkable. The spleen, pancreas, and adrenal glands are unremarkable. The kidneys are normal in size and attenuation. There is no hydronephrosis or perinephric fat stranding. No renal calculi or renal masses are identified. The ureters are normal in caliber and no ureteral calculi are seen. The bladder is normal in contour. No evidence of focal or diffuse bowel wall thickening or evidence of bowel obstruction is seen. Few small diverticuli of 2mm seen in descending colon. No inflammatory changes. The appendix is visualized in the right lower quadrant and appears within normal limits. No adenopathy or fluid collections are seen. The aorta is normal in caliber. No aggressive appearing osseous lesions are identified. Fat containing umbilical hernia is seen, the defect measuring [id number]. There is fat stranding seen in herniated omental fat. Fat containing left inguinal hernia. IMPRESSION: 1. Umbilical hernia with fat stranding in herniated omental fat. Advised clinical correlation and close follow up for possibility of incarcerated hernia. 2. Diffuse hepatic steatosis. 3. Uncomplicated descending colon diverticulosis. 4. Fat containing left inguinal hernia. Electronically signed by Jitendra Vega 06-22-2024 03:17 AM Dictated: 06/21/24 0232 PG Care Time/CCT Total # of Minutes Spent Total Time Spent with Patient: Total time spent is greater than 50% in coordination of care (as documented) at patient's floor/unit and/or counseling patient: Coding Level of Care Code 17213 IN/OBS CONSULT LVL 3,45M Diagnoses Hernia, umbilical K42.9 Obstruction and gangrene presence: without obstruction or gangrene (1) Hernia, umbilical Obstruction and gangrene presence: without obstruction or gangrene Qualified Code(s): K42.9 - Umbilical hernia without obstruction or gangrene
[2024-06-22 12:16] LABS: Chol HDL Ratio 6.6 (0-5)
[2024-06-22 12:28] LABS: Thyroid Stimulating Hormone 2.507 uIu/ml (0.300-4.500)
[2024-06-22] MEDS: SODIUM CHLORIDE 0.9% 1,000 ML IV SCH (12:34)
[2024-06-22 12:43] LABS: Estimated Average Glucose 103 mg/dl; Hemoglobin A1C 5.2 % (4.5-5.6)
--- NOTE | 2024-06-22 14:22 | Anesthesiology Consultation ---
Date of Service June 22, 2024 Assessment & Plan Chart Review Chart Review: Acceptable Risk for Surgery and Patient NOT seen in Pre Admission Testing Consults Requested none History Surgery Operation Date: 06/22/24 07:00 Proposed Procedures p Open Umbilical Hernia Repair - Robbi Gordillo DO, FACS Height/Weight Height: 5 ft 5 in Weight: 115.3 kg Allergies Allergy/AdvReac Type Severity Reaction Status Date / Time No Known Allergies Allergy Verified 06/21/24 19:41 Medications Home Medications Medication Instructions Recorded Confirmed Last Taken oxycodone 5 mg tablet 5 mg PO Q8H PRN pain #20 tabs 06/21/24 06/22/24 Unknown Active Medications Generic Name Dose Route Start Last Admin Trade Name Freq PRN Reason Stop Dose Admin Sodium Chloride 1,000 mls @ 75 mls/hr 06/22/24 05:30 06/22/24 12:37 Nss IV 06/22/24 18:49 Infused .[id number] ONE Infusion Sodium Chloride 1,000 mls @ 100 mls/hr 06/22/24 12:15 06/22/24 12:34 Nss IV 06/22/24 22:14 100 mls/hr .Q10H YON Administration Ketorolac Tromethamine 15 mg 06/22/24 05:19 06/22/24 08:54 Ketorolac Tromethamine 15 Mg/Ml Vial IV 06/27/24 05:18 15 mg Q6H PRN Administration Pain Morphine Sulfate 2 mg 06/22/24 08:42 06/22/24 10:33 Morphine Sulfate 2 Mg/Ml Carp IV 07/06/24 08:41 2 mg Q6H PRN Administration Pain Social History Smoking Status: Never smoker Physical Exam Vital Signs Last Vital Signs Temp 37.0 C 06/21/24 22:38 Pulse 67 06/22/24 12:05 Resp 18 06/22/24 12:05 BP 144/88 H 06/22/24 12:05 Pulse Ox 93 06/22/24 12:05 O2 Del Method Room Air 06/22/24 12:05 Testing Laboratory Results 06/22/24 00:17 06/22/24 00:17 Hemoglobin A1c 5.2 % (4.5-5.6) 06/22/24 00:17 Urine Color Yellow 06/22/24 03:52 Urine Appearance Clear (Clear) 06/22/24 03:52 Urine pH 6.0 (4.5-7.5) 06/22/24 03:52 Ur Specific Denhoff > 1.045 (1.000-1.030) H 06/22/24 03:52 Urine Protein Negative (Negative) 06/22/24 03:52 Urine Glucose (UA) Negative (Negative) 06/22/24 03:52 Urine Ketones 2+ (Negative) H 06/22/24 03:52 Urine Nitrite Negative (Negative) 06/22/24 03:52 Ur Leukocyte Esterase Negative (Negative) 06/22/24 03:52 Blood Type A Positive 06/22/24 12:26 Antibody Screen NEGATIVE 06/22/24 12:26
[2024-06-22] MEDS ORDERED: MIDAZOLAM HCL 1 MG/ML 2ML VIAL ONE (14:34)
[2024-06-22] MEDS ORDERED: fentaNYL citrate PF 100 MCG/2 ML VIAL ONE ×2 (14:34→15:29)
[2024-06-22] MEDS ORDERED: DEXAMETHASONE SOD INJ 4 MG/ML VIAL ONE ×2 (14:36)
[2024-06-22] MEDS ORDERED: LIDOCAINE 2% 2 ML VIAL/AMP(20MG/ML) INFIL ONE ×2 (14:36)
[2024-06-22] MEDS ORDERED: ONDANSETRON INJ 2 MG/ML 2 ML VIAL ONE (14:36)
[2024-06-22] MEDS ORDERED: PROPOFOL IV EMULSION 10 MG/ML 20 ML VIAL IV ONE ×2 (14:36)
[2024-06-22] MEDS ORDERED: ROCURONIUM BROMIDE 10 MG/ML 5 ML VIAL IV ONE ×2 (14:37)
[2024-06-22] MEDS ORDERED: DROPERIDOL 5 MG/2 ML VIAL IV PRN (14:56)
[2024-06-22] MEDS ORDERED: ePHEDrine sulfate 50 MG/ML AMP IV PRN (14:56)
[2024-06-22] MEDS ORDERED: ATROPINE SULFATE 0.1 MG/ML 10ML SYR IV PRN (14:56)
[2024-06-22] MEDS ORDERED: KETAMINE HCL 10MG/ML SYR ONE (15:02)
[2024-06-22] MEDS ORDERED: SUGAMMADEX SODIUM 200 MG/2 ML VIAL IV ONE (15:41)
[2024-06-22] MEDS: ceFAZolin 2,000 MG/15 ML IV PUSH IV ONE (15:42)
[2024-06-22] MEDS: BUPIVACAINE LIPOSOME 1.3% 133 MG/10 ML VIAL ONE (15:51)
[2024-06-22] MEDS: BUPIVACAINE 0.5 % 5 MG/1 ML MPF 30ML VIAL ONE (15:52)
--- NOTE | 2024-06-22 15:55 | Operative Report ---
PG Post Operative Report Pre & Post Diagnosis Operation Date: 06/22/24 07:00 Pre-Op Diagnosis: Incarcerated umbilical Hernia Post-Op Diagnosis: Incarcerated umbilical Hernia, 1.5 cm defect I identified the patient and participated in the time-out.: Yes Procedure Operation Date: 06/22/24 07:00 Actual Procedures p Open incarcerated umbilical Hernia Repair(primary repair) - Robbi Gordillo DO, FACS Surgeon Robbi Gordillo DO, FACS [employer] Rajwinder Shirley Estimated Blood Loss 5 Findings Consistent with Post-Op Diagnosis Incarcerated fat reduced, 1.5 cm defect encountered. Close primarily with interrupted 0 Nurolon sutures. Small skin defect at base of umbilicus closed with running 3-0 Vicryl suture. Exparel injected Specimens None Anesthesia Type General Complications none Disposition Accompanied Patient To Recovery: No Disposition: Recovery Room Indications 33-year-old male with symptomatic umbilical hernia presented to the emergency department with second episode of incarcerated fat-containing umbilical hernia, plan for open umbilical hernia repair. The risks of the procedure were discussed, all questions were answered, and the patient agreed to proceed with surgery as planned. Description of Procedure The patient was properly identified, consented, and taken to the operating room where he was placed in the supine position. General endotracheal anesthesia was induced. SCDs and a safety belt were placed. Preoperative antibiotics were administered. The patient's abdomen was prepped and draped in the standard sterile fashion. Surgical timeout was performed and all parties were in agreement that this was the correct patient and procedure to be performed and we continued as planned. A curvilinear infraumbilical incision was made and deepened down to the fascia with blunt dissection. The umbilical stalk was circumferentially dissected with a Nallely, and divided below the level of the skin. During the dissection a small hole was created in the skin. This was closed with a running 3-0 Vicryl suture. The incarcerated fat was reduced and was viable. A 1.5 cm fascial defect was encountered. The hernia was reduced. The fascia anteriorly and posteriorly was cleared of investing tissue for several centimeters. Hemostasis was achieved within the wound. The hernia defect was closed primarily with interrupted 0 Nurolon sutures. The wound was irrigated and hemostasis confirmed. The umbilicus was tacked down to the fascia with 3-0 Vicryl sutures. Local anesthetic in the form of 0.5% Marcaine mixed with Exparel was injected in the fascia and along the skin incision. The skin was closed with interrupted 3-0 Vicryl deep dermal sutures, followed by 4-0 Monocryl running subcuticular suture. Dermabond was placed over the wound and at the base of the umbilicus. The patient was extubated in the operating room and taken to the PACU where he recovered without apparent incident. All sponge, instrument and needle counts were correct at the conclusion of the procedure. The patient tolerated the procedure well. The physicians oceanographer assistant was present and scrubbed the entire the case. She was critical in positioning the patient, prepping and draping, retraction and exposure, repair of the hernia, closure the incisions, placement of the dressings. I attest to the content of the Intraoperative Record and any orders documented therein. Any exceptions are noted below.
--- NOTE | 2024-06-22 16:07 | Communication Note ---
Date of Service: June 22, 2024 Discussed with general surgery. All went well in the OR. Plan for DC in the AM on 06/23 if his night goes well and tolerates advancing diet. Per previous en counter in the ED, patient was previously prescribed oxycodone and they disposed (in front of me) the bottle in the sharps container, unopened. Patient stated that he has no history of addiction, but some family history so want to avoid Oxycodone use. Likely DC on 06/23. No additional time spent to add to the bill for this communication note.
--- NOTE | 2024-06-22 16:38 | Anesthesiology Progress Note ---
Date of Service June 22, 2024 Anesthesia Post Procedure Vital Signs Vital Signs: Temp Pulse Pulse Pulse Resp BP BP 06/22/24 16:30 80 22 145/90 H 06/22/24 16:20 72 24 135/95 06/22/24 16:12 36.4 C L 71 24 135/85 06/22/24 14:40 36.8 C 70 18 147/91 H 06/22/24 12:05 67 18 144/88 H 06/22/24 08:53 68 16 139/100 06/22/24 06:00 56 L 17 06/22/24 04:00 65 17 129/80 06/22/24 02:00 63 18 144/85 H 06/22/24 00:36 64 18 148/95 H 06/22/24 00:00 06/21/24 22:38 37.0 C 78 18 167/109 H Pulse Ox O2 Del Method O2 Flow Rate 06/22/24 16:30 94 Nasal Cannula 4 06/22/24 16:20 93 Nasal Cannula 5 06/22/24 16:12 89 L Oxymask 5 06/22/24 14:40 98 Room Air 06/22/24 12:05 93 Room Air 06/22/24 08:53 95 Room Air 06/22/24 06:00 93 Room Air 06/22/24 04:00 93 Room Air 06/22/24 02:00 97 Room Air 06/22/24 00:36 95 Room Air 06/22/24 00:00 98 Room Air 06/21/24 22:38 97 Room Air Pain Intensity Abdomen: Pain Intensity: 8 Transfer of Care Handoff Completed per policy Notes Mental Status: alert / awake / arousable and participated in evaluation Patient Amnestic to Procedure: Yes Nausea / Vomiting: adequately controlled Pain: adequately controlled Airway Patency, RR, SpO2: stable & adequate BP & HR: stable & adequate Hydration State: stable & adequate Anesthetic Complications: no major complications apparent and Pt Satisfied with anesthetic care
[2024-06-22] MEDS: HYDROmorphone INJ 2 MG/ML SYR/VIAL IV PRN (16:55)
[2024-06-22] MEDS ORDERED: MoRPHine SULFATE 2 MG/ML CARP IV PRN (17:55)
[2024-06-22] MEDS ORDERED: traMADol HCL 50 MG TABLET PO PRN (17:55)
[2024-06-22] MEDS: ceFAZolin 2000MG 2,000 MG/15 ML SYR IV ONE (18:11)
[2024-06-22] MEDS: LACTATED RINGER'S 1,000 ML IV SCH (18:43)
--- NOTE | 2024-06-22 20:37 | Electrocardiogram Report ---
Test Reason : Blood Pressure : */* mmHG Vent. Rate : 64 BPM Atrial Rate : 64 BPM P-R Int : 166 ms QRS Dur : 84 ms QT Int : 396 ms P-R-T Axes : 32 60 23 degrees QTcB Int : 408 ms Normal sinus rhythm Normal ECG No previous ECGs available Confirmed by Eddie Ash ([id number]) on 06/22/2024 8:36:37 PM Referred By: REFERRED SELF Confirmed By: Eddie Ash
[2024-06-22] MEDS: traMADol HCL 50 MG TABLET PO PRN (22:47)
[2024-06-23 03:59] VITALS: TEMP 97.7
--- NOTE | 2024-06-23 04:52 | Surgery Progress Note ---
Date of Service June 23, 2024 Assessment & Plan (1) Hernia, umbilical: Plan: Status post repair of umbilical hernia on 06/22/2024 (postoperative 1) Continue to provide analgesics as needed Continue to advance diet as tolerated Encourage mobilization Check a.m. labs unavailable If patient remains hospitalized consideration should be given adding DVT prophylaxis Admission and Anticipated Discharge Date Admission Date: June 22, 2024 Supervising Physician Co-Signing Physician Notes POD #1 open umbilical hernia repair for incarcerated fat-containing umbilical hernia. Feeling much better than prior to surgery, minimal pain, no issues. Abdomen soft, incision without infection. Okay to discharge to home, wound care instructions, activity restrictions, and return precautions given. Follow-up with me in 2 weeks. Call the general surgery clinic with questions or concerns. Subjective Patient is currently resting comfortably in bed. He notes his pain is well- controlled and is markedly improved from what he noted preoperatively. He has not had a bowel movement or passed flatus since surgery. He said he initially had some emesis when trying to eat crackers but has since tolerated liquids without exacerbating abdominal pain or nausea or vomiting. Physical Exam Gastrointestinal (Abdomen): Abdomen is soft and nondistended. Incision and hernia repair is clean, dry, and intact. There is no pain with palpation at the time my exam Results & Data Vital Signs (Past 12 Hours) Vital Signs Temp Pulse Pulse Resp BP Pulse Ox O2 Del Method 06/23/24 03:58 36.5 C 78 18 124/78 94 Room Air 06/22/24 23:39 36.4 C L 88 16 143/90 H 95 Room Air 06/22/24 19:30 36.7 C 85 18 138/96 96 Room Air 06/22/24 18:35 94 Room Air 06/22/24 18:27 36.8 C 73 16 146/87 H 96 Nasal Cannula 06/22/24 17:55 36.5 C 62 16 130/86 95 Nasal Cannula 06/22/24 17:30 Nasal Cannula 06/22/24 17:30 36.7 C 80 20 131/87 94 Nasal Cannula 06/22/24 17:10 67 18 132/77 94 Nasal Cannula 06/22/24 17:00 64 23 126/79 94 Nasal Cannula O2 Flow Rate 06/23/24 03:58 06/22/24 23:39 06/22/24 19:30 06/22/24 18:35 03/21/25 18:27 2 06/22/24 17:55 2 06/22/24 17:30 2 06/22/24 17:30 2 06/22/24 17:10 2 06/22/24 17:00 2 PG Care Time/CCT Total # of Minutes Spent Total Time Spent with Patient: Total time spent is greater than 50% in coordination of care (as documented) at patient's floor/unit and/or counseling patient: Coding Level of Care Code 41560 Post Operative Follow-Up Diagnoses Hernia, umbilical K42.9 Obstruction and gangrene presence: without obstruction or gangrene (1) Hernia, umbilical Obstruction and gangrene presence: without obstruction or gangrene Qualified Code(s): K42.9 - Umbilical hernia without obstruction or gangrene
[2024-06-23 07:06] LABS: Basophils # (auto) 0.03 K/uL (0.00-0.20); Basophils % (auto) 0.3 %; Eosinophils # (auto) 0.01 K/uL (0.00-0.50); Eosinophils % (auto) 0.1 %; Hematocrit (blood only) 42.8 % (42.0-52.0); Hemoglobin 15.4 g/dl (14.0-18.0); Immature Granulocytes # (auto) 0.03 K/uL (0.01-0.20); Immature Granulocytes % (auto) 0.3 %; Lymphocytes # (auto) 1.22 K/uL (1.20-3.40); Lymphocytes % (auto) 10.3 %; Mean Corpuscular Hemoglobin 30.4 pg (25.0-34.0); Mean Corpuscular Volume 84.6 fL (80.0-100.0); Mean Platelet Volume 8.8 fL (9.4-12.4); Monocytes # (auto) 0.68 K/uL (0.11-0.59); Monocytes % (auto) 5.7 %; Neutrophils # (auto) 9.87 K/uL (1.40-6.50); Neutrophils % (auto) 83.3 %; Platelet Count 309 K/uL (130-400); RDW Coefficient of Variation 11.8 % (11.5-14.5); RDW Standard Deviation 36.2 fL (36.4-46.3); Red Blood Count 5.06 M/uL (4.70-6.10); White Blood Count 11.84 K/ul (4.8-10.8)
[2024-06-23 07:25] VITALS: BP 142/82; PULSE 81; RESP 20; O2SAT 95
[2024-06-23 07:43] LABS: Albumin Globulin Ratio 1.5 (0.9-2); Albumin Level 4.3 gm/dl (3.4-5.0); BUN Creatinine Ratio 13.2 (10-20); Bilirubin,Total 0.5 mg/dl (0.2-1.0); Creatinine Clr Calc Pharmacy 135.6 ml/min; Globulin 2.8 gm/dl (2.5-4.0); Magnesium 2.1 mg/dl (1.7-2.4); Potassium 3.9 mmol/L (3.5-5.1); Total Protein 7.1 gm/dl (6.0-8.3)
--- NOTE | 2024-06-23 10:54 | Discharge Summary ---
Date of Service June 23, 2024 Admission HPI Per Admitting Provider History obtained from patient, family, and records. No significant medical history. Patient moved to [place], [place] from [place] last November,. Has not been to see assigned PCP. Patient has had a hernia close to his bellybutton for about a year now. Worsening pain noted since last week. Patient unable to push bulge in. No fever, no chills. No chest pain, no SOB. Hard to move bowels because of pain from bearing down. Denies black/bloody stools. Patient consulted [facility] ER. He was told to see General Surgery outpatient. Unanswered calls to [place] surgeon office as per patient/family. Patient consulted ER yesterday afternoon due to worsening symptoms. CT abdomen pelvis showed Prominent fat-containing umbilical hernia, associated with inflammatory fat stranding, suggesting ischemia. No herniated bowel. Outpatient appointment recommended by general surgeon as per discussion with ED provider. Patient uncomfortable upon discharge at the ER. Had pick him up from the hospital. Patient had episode of emesis in the vehicle. Patient returned to ER for further evaluation. 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 Admission Exam Per Admitting Provider Physical Exam: GENERAL: Comfortable, morbidly obese, slightly anxious, no respiratory distress SKIN: Normal color, warm HEENT: [place] palpebral conjunctivae, no ptosis, dry buccal mucosa NECK : Supple, no tenderness CHEST : CTA, no tenderness HEART : RRR, no obvious murmurs ABDOMEN: Some distention, tender bulge over periumbilical hernia EXTREMITIES : Minimal LE swelling without tenderness, palpable pulses, no other conspicuous deformities noted NEUROLOGIC : Coherent, no facial asymmetry, no other gross focality Principal Diagnosis Incarcerated umbilical hernia Discharge Exam General: awake, alert, no apparent distress, obese male, BMI 42.3 Head: Normocephalic, atraumatic ENT: PERRL, EOMI, no pharyngeal exudate, mucous membranes moist Chest: Clear to auscultation, on room air, no adventitious breath sounds Cardiac: Regular rate and rhythm, no murmur, no JVD, normal peripheral pulses, good capillary refill Abdominal: NABS x 4 quadrants, soft, nondistended, Umbilical incision is glued with adhesive, no surrounding erythema, no drainage from wound, nontender to palpation, no rebound or guarding Extremities: Normal inspection, no peripheral edema or erythema, calfs nontender to palpation Psych: Normal mood and affect Neuro: AAO x 3, strength intact bilaterally and rated 5/5, no motor deficits, speech is clear, no peripheral sensory deficits Discharge Data Allergies Allergy/AdvReac Type Severity Reaction Status Date / Time No Known Allergies Allergy Verified 06/21/24 19:41 Consultations 06/22/24 04:30 ED Decision to Admit Stat 06/22/24 05:20 Consult General Surgery Routine Procedures Performed Operation Date: 06/22/24 07:00 Actual Procedures p Open Umbilical Hernia Repair(Not Applicable) - Robbi Gordillo, DO, FACS Ordered Studies 06/21/24 23:57 CT abd pelvis oral and IV con Stat Hospital Course (1) Abdominal pain: 33 year old male with no known medical history presents with abdominal pain, umbilical hernia and emesis. CTAP suggestive of incarcerated hernia; mild leukocytosis. Patient had episodes of emesis, chills, had previously been prescribed an abdominal binder however hernia reduced and then popped back out, CTAP suggestive of incarcerated hernia and uncomplicated descending colon diverticulosis. Fat-containing left inguinal hernia. General surgery operated on 06/22/2024 and found 1.5 cm defect of incarcerated fat which was reduced and was viable. 1.5 cm fascial defect was encountered. The hernia was reduced. Hernia defect was closed with sutures, skin closed with sutures and Dermabond applied over the wound at the base of umbilicus. No mesh was used. Patient had significant improvement in his pain and was stable for discharge home. General surgery to follow-up in the outpatient setting. Hepatic steatosis was identified on CT abdomen and pelvis, ALT 73, GI follow-up is recommended in the outpatient setting. Patient also was established with a [facility] PCP as recently moved to the area. Weight reduction was encouraged with BMI noted of 42.3. Triglycerides were significantly elevated at 243, total cholesterol 219, LDL 137, HDL 33. Cholesterol ratio 6.6. A1c of 5.2. Total Time Total Time Spent Total Time Spent (In Minutes): 35 Discharge Plan Discharge Items Patient Disposition: Home - Self-Care Reason For Visit: ABD PAIN Discharge Diagnosis: open umbilical hernia repair Condition on Discharge: Good Activity: Per Instructions section Lifting: No more than 10 pounds Bathing: Keep incision dry Bathing Comment: may shower; no soaking in tubs/pools x 2 weeks Exercise/Sports: Gradually increase as tolerated Driving/Machine Use: no driving while taking narcotics for pain Weightbearing: Full weightbearing Non-emergency contact: Primary Care Provider and Surgeon Call non-emergency contact if: you have any medication questions, your symptoms worsen, your pain is not controlled, you have a fever, your temperature is above 101.5, your wound has increased redness, your wound has increased drainage and your wound pain has increased Follow-up/Referrals: Robbi Gordillo DO, FACS [Physician] - (please call to schedule follow up in the office within 2 weeks ) Rafael Acosta M.D. [Outside Practitioners] - (Date & Time 06/29/2024 9:00 AM Provider: Rafael Acosta MD Family Practice [facility] ) Diet: Regular Addtl Attending Provider Instructions: SPECIAL CARE INSTRUCTIONS: * You have skin glue over your incisions called dermabond. This is also inside your belly button, do not pick it out. you may shower with this on. It will tend to dissolve and fall off within a couple weeks. Do not pick at the skin glue * You may shower 06/23 . NO soaking in pools or baths for 2 weeks * No lifting greater than 10lbs. No strenuous exercise until cleared by surgeon. Light walking is accepted. * No driving while taking narcotic pain medication; wait at least 3 days * No drinking alcohol while taking narcotic pain medication * May use Ibuprofen/Tylenol over the counter for pain as tolerated. Do not exceed 3grams of Tylenol per 24 hours * Expect some swelling and bruising. * Diet- you may resume your regular diet Call your doctor if: * Temperature above 101 degrees, nausea/vomiting, fever/chills * Pain not relieved by pain medicine ordered * There is increased drainage or redness from any incision * You have any unanswered questions or concerns [phone]. FOLLOW UP VISIT: If not already scheduled, please call the office for a follow-up visit. Office Addtl Central Office Supervisor Provider Instructions: You were admitted to [facility] due to Incarcerated umbilical hernia and underwent surgical procedure by general surgery on 06/22/2024. During your stay here you were treated with supportive care, medications , fluids, and your symptoms improved. Medications: Continue taking you medications as prescribed. Appointments: Follow up with PCP within 1 week, an appointment has been requested for you. Follow up with general surgery within 2-4 weeks. Appointments have been requested for you. If you do not receive confirmation of appointments within 2-3 days, please call the hospital at [phone] and [facility]. Pending Studies at Discharge: No Stand-Alone Forms: My [facility] [employer], Smoking Cessation Medications and DC Order Prescriptions: Continued oxycodone 5 mg tablet 5 mg PO Q8H PRN (Reason: pain) Qty: 20 0RF Discharge Orders: Discharge Order (Routine); Ordered 06/23/24 Ordered By: June Pandey Admission Data Admit Date/Time: 06/22/24 04:37 Attending Provider: Stuart Mortensen Admit Provider: Nicholas Bowden Primary Care Provider: PCP,NO Other Providers: Nicholas Bowden; Danyel Serrano Other Interventions: Discharge Summary Assessment (RN) Last Done: 06/23/24 11:09 Supervising Physician Co-Signing Physician Notes Patient is seen and examined at bedside on day of discharge. Abdominal pain resolved. Tolerating regular diet. Denies any chest pain, dyspnea, dizziness, nausea, vomiting. On exam patient is morbidly obese, no apparent distress, normocephalic atraumatic, EOMI, normal breath sounds, clear to auscultation, S1- S2, no murmur, no peripheral edema, abdomen soft, protuberant, non tender, normal bowel sounds, alert, awake, oriented, grossly no focal deficits. Patient is currently being managed for Incarcerated umbilical hernia S/P umbilical hernia repair. Received IV fluids. Tolerated regular diet. Appreciate surgery input. Advised to follow-up with PCP, surgery on discharge. I personally interviewed and examined the patient at bedside. I have reviewed the advanced practitioner's documentation on the date of service referred in note and agree with plan. Patient's care is coordinated with June Pandey PA-C. Please refer to the documentation above for details of patient's presentation and for discussion of other issues. I spent a total [id number] coordinating, documenting, and providing care for this patient excluding time spent in the performance of separately billed services or time spent by another provider/QHP.
== END 2024-06-23 11:34 | disposition home or self-care (01) ==
LOC: ED 22:36 → EDINP 22:36 → 3N 06-22 17:42